=== PATIENT | male | born 1955 | race Caucasian/White ===

== ENCOUNTER → 2016-07-24 | Outpatient (CLI) | payer BC ==
[~2016-07-24] MED LIST: NAPROSYN500 MG PO; VALIUM5 MG PO
== END | disposition home or self-care (01) ==
LOC: NUC 09:28
DX: M47.896 Other spondylosis, lumbar region (principal); M17.0 Bilateral primary osteoarthritis of knee; M19.071 Primary osteoarthritis, right ankle and foot; M19.072 Primary osteoarthritis, left ankle and foot; D16.21 Benign neoplasm of long bones of right lower limb; M76.61 Achilles tendinitis, right leg
CPT/HCPCS: 78306; A9503